=== PATIENT | male | born 1945 | race Caucasian/White ===

== ENCOUNTER 2017-02-17 03:35 | Emergency (ER) | payer MEDICARE, OTHER ==
[2017-02-17 04:08] VITALS: BP 176/94
--- NOTE | 2017-02-17 04:36 | EDM.PDOC ---
ED HPI GENERAL MEDICAL PROBLEM - General Chief Complaint: General Stated Complaint: DIZZINESS / HX OF HEART PROBLEMS Time Seen by Provider: 02/17/17 03:52 Source of Information: Reports: Patient History Limitations: Reports: No Limitations - History of Present Illness INITIAL COMMENTS - FREE TEXT/NARRATIVE: dizziness; this is a 71 y/o male presents to ER with friend, concerns of intermittent dizziness for the past day. He states was mowing the lawn, bent over then stood up, felt dizzy. He came to ER because just wasn't feeling well and wanted to be check out. -denies dizziness at this time -denies any chest pain, shortness of breath, fever, nausea or vomiting reports bladder cancer, took his second chemotherapy treatment at [facility] on 2016. reports medication is instilled into bladder. does not take any oral or IV medications for this. Onset: Today Duration: Intermittent, Resolved Prior to Arrival Location: Reports: Generalized Improves with: Reports: None Worsens with: Reports: Movement Associated Symptoms: Reports: No Other Symptoms denies pain Pain Score (Numeric/FACES): 0 - Related Data Allergies Allergy/AdvReac Type Severity Reaction Status Date / Time No Known Allergies Allergy Verified 02/12/14 07:10 Home Meds: Home Meds Aspirin [Adult Low Dose Aspirin EC] 81 mg PO DAILY 02/12/14 [History] Lisinopril [Prinivil] 20 mg PO BID 02/12/14 [History] Metoprolol Succinate 25 mg PO BID 02/12/14 [History] Nitroglycerin [Nitrostat] 0.4 mg SL ASDIRECTED PRN 02/12/14 [History] Simvastatin [Simvastatin] 80 mg PO DAILY 02/12/14 [History] Past Medical History HEENT History: Reports: Impaired Vision Cardiovascular History: Reports: [place], Stents, Other (See Below) Other Cardiovascular History: x3 stents Gastrointestinal History: Reports: Chronic Constipation Musculoskeletal History: Reports: Arthritis Neurological History: Reports: Concussion Oncologic (Cancer) History: Reports: Bladder - Infectious Disease History Infectious Disease History: Reports: Chicken Pox, Shingles - Past Surgical History Cardiovascular Surgical History: Reports: Coronary Artery Stent GI Surgical History: Reports: Colonoscopy Male Surgical History: Reports: Other (See Below) Other Male Surgeries/Procedures: has had Ca tumor removed from bladder Musculoskeletal Surgical History: Reports: None Social & Family History - Tobacco Use Smoking Status *Q: Never Smoker Second Hand Smoke Exposure: No - Caffeine Use Caffeine Use: Reports: Coffee - Alcohol Use Days Per Week of Alcohol Use: 0 - Recreational Drug Use Recreational Drug Use: No ED ROS GENERAL - Review of Systems Review Of Systems: See Below Constitutional: Reports: No Symptoms HEENT: Reports: No Symptoms Respiratory: Reports: No Symptoms Cardiovascular: Reports: No Symptoms Endocrine: Reports: No Symptoms GI/Abdominal: Reports: No Symptoms : Reports: No Symptoms Musculoskeletal: Reports: No Symptoms Skin: Reports: Bruising Neurological: Reports: No Symptoms Psychiatric: Reports: No Symptoms Hematologic/Lymphatic: Reports: No Symptoms Immunologic: Reports: No Symptoms ED EXAM, GENERAL - Physical Exam Exam: See Below Exam Limited By: No Limitations General Appearance: Alert, WD/WN, No Apparent Distress Eye Exam: Bilateral Eye: Normal Inspection Ears: Normal External Exam, Normal Canal, Hearing Grossly Normal, Normal TMs Ear Exam: Bilateral Ear: Auricle Normal, Canal Normal, TM normal Nose: Normal Inspection, Normal Mucosa, No Blood Throat/Mouth: Normal Inspection, Normal Lips, Normal Teeth, Normal Gums, Normal Oropharynx, Normal Voice, No Airway Compromise Head: Atraumatic, Normocephalic Neck: Normal Inspection Respiratory/Chest: No Respiratory Distress, Lungs Clear, Normal Breath Sounds, No Accessory Muscle Use, Chest Non-Tender Cardiovascular: Normal Peripheral Pulses, Regular Rate, Rhythm, No Edema, No Gallop, No JVD, No Murmur, No Rub GI/Abdominal: Normal Bowel Sounds, Soft, Non-Tender, No Organomegaly, No Distention, No Abnormal Bruit, No Mass (Male) Exam: Deferred Rectal (Males) Exam: Deferred Back Exam: Normal Inspection, Full Range of Motion, NT Extremities: Normal Inspection, Normal Range of Motion, Non-Tender, Normal Capillary Refill, No Pedal Edema Neurological: Alert Psychiatric: Normal Affect, Normal Mood Skin Exam: Warm, Dry, Intact, Normal Color, No Rash Lymphatic: No Adenopathy Course - Vital Signs Last Recorded V/S: Last Vital Signs Temp 36.9 C 02/17/17 03:55 Pulse 95 02/17/17 03:55 Resp 18 02/17/17 03:55 BP 176/94 H 02/17/17 03:55 Pulse Ox 95 02/17/17 03:55 - Orders/Labs/Meds Orders: Active Orders 24 hr Category Date Time Status EKG Documentation Completion [RC] ASDIRECTED Care 02/17/17 03:52 Active GLYCOSYLATED HEMOGLOBIN,HGBA1C [CHEM] Stat Lab 02/17/17 05:00 Ordered T3 FREE [CHEM] Stat Lab 02/17/17 05:12 Ordered T4 FREE [CHEM] Stat Lab 02/17/17 05:12 Ordered EKG 12 Lead [EK] Urgent Ther 02/17/17 03:52 Ordered Labs: Laboratory Tests 02/17/17 02/17/17 02/17/17 Range/Units 03:51 04:44 04:44 WBC 6.6 (4.5-11.0) K/uL RBC 4.69 (4.30-5.90) M/uL Hgb 14.6 (12.0-15.0) g/dL Hct 43.7 (40.0-54.0) % MCV 93 (80-98) fL MCH 31 (27-31) pg MCHC 33 (32-36) % Plt Count 207 (150-400) K/uL Neut % (Auto) 48 (36-66) % Lymph % (Auto) 37 (24-44) % Hardy % (Auto) 12 H (2-6) % Eos % (Auto) 3 (2-4) % Baso % (Auto) 0 (0-1) % Sodium 139 L (140-148) mmol/L Potassium 4.3 (3.6-5.2) mmol/L Chloride 102 (100-108) mmol/L Carbon Dioxide 30 (21-32) mmol/L Anion Gap 11.3 (5.0-14.0) mmol/L BUN 13 (7-18) mg/dL Creatinine 1.3 (0.8-1.3) mg/dL Est Cr Clr Drug Dosing 57.12 mL/min Estimated GFR (MDRD) 55 L (>60) Glucose 326 H (74-106) mg/dL Calcium 8.5 (8.5-10.1) mg/dL Magnesium 1.8 (1.8-2.4) mg/dL Total Bilirubin 0.3 (0.2-1.0) mg/dL AST 25 (15-37) U/L ALT 43 D (12-78) U/L Alkaline Phosphatase 82 (46-116) U/L Troponin I < 0.017 (0.000-0.056) ng/mL Total Protein 7.3 (6.4-8.2) g/dL Albumin 3.5 (3.4-5.0) g/dL Globulin 3.8 H (2.3-3.5) g/dL Albumin/Globulin Ratio 0.9 L (1.2-2.2) Amylase 29 (25-115) U/L Lipase 122 (73-393) U/L TSH, Ultra Sensitive 15.022 H (0.358-3.740) uIU/mL Urine Color Yellow Urine Appearance Clear Urine pH 6.0 (4.5-8.0) Ur Specific [place] 1.015 (1.008-1.030) Urine Protein Negative (NEGATIVE) mg/dL Urine Glucose (UA) >1000 H (NEGATIVE) mg/dL Urine Ketones Negative (NEGATIVE) mg/dL Urine Occult Blood Trace (NEGATIVE) Urine Nitrite Negative (NEGAITVE) Urine Bilirubin Negative (NEGATIVE) Urine Urobilinogen Normal (NORMAL) mg/dL Ur Leukocyte Esterase Negative (NEGATIVE) Urine RBC 5-10 H (0-5) Urine WBC 5-10 H (0-5) Ur Epithelial Cells Few Amorphous Sediment Not seen Urine Bacteria Few Urine Mucus Not seen - Re-Assessments/Exams Free Text/Narrative Re-Assessment/Exam: 02/17/17 04:35 -at this time is symptoms free -EKG sinus ryth, unchanged from EKG 2014 -order lab; troponin, cbc, cmp, amylase, lipase, tsh, ua/micro., mag++ 02/17/17 05:22 blood glucose 326, TSH 15.022 02/17/17 05:23 order Metformin 500mg po now, Synthyroid 0.075mg po now Departure - Departure Time of Disposition: 05:30 Disposition: Home, Self-Care 01 Condition: Good Clinical Impression: Diabetes type 2, uncontrolled, Hypothyroidism - Discharge Information Referrals: PCP,None [Primary Care Provider] - Forms: ED Department Discharge Care Plan Goals: Diabetes type 2; new diagnosis -Metformin 500mg take in morning and evening for blood gluocose -diet changes; avoid sugars, limit or avoid candy, chocolate, creamers -referral to Diabetes Nurse Educator -referral to Primary Care Provider for follow up on diabetes Hypothyroidism -start thyroid replacement -script Synthroid tablet 0.075mg drink plenty of fluids, avoid sugar take medication as prescribed return to clinic or er for any concerns or not improved. - Problem List & Annotations (1) Diabetes type 2, uncontrolled SNOMED Code(s): 33517565, 330499253 Code(s): E11.65 - TYPE 2 DIABETES MELLITUS WITH HYPERGLYCEMIA Status: Acute Priority: High Current Visit: Yes Qualifiers: Diabetes mellitus complication status: with hyperglycemia Diabetes mellitus ferry terminal supervisor insulin use: without mcc use Qualified Code(s): E11.65 - Type 2 diabetes mellitus with hyperglycemia (2) Hypothyroidism SNOMED Code(s): 91210332 Code(s): E03.9 - HYPOTHYROIDISM, UNSPECIFIED Status: Acute Priority: High Current Visit: Yes Qualifiers: Hypothyroidism type: unspecified Qualified Code(s): E03.9 - Hypothyroidism , unspecified - Problem List Review Problem List Initiated/Reviewed/Updated: Yes - My Orders Last 24 Hours: My Active Orders 02/17/17 03:52 EKG Documentation Completion [RC] ASDIRECTED EKG 12 Lead [EK] Urgent 02/17/17 05:00 GLYCOSYLATED HEMOGLOBIN,HGBA1C [CHEM] Stat 02/17/17 05:12 T3 FREE [CHEM] Stat T4 FREE [CHEM] Stat - Assessment/Plan Last 24 Hours: My Active Orders 02/17/17 03:52 EKG Documentation Completion [RC] ASDIRECTED EKG 12 Lead [EK] Urgent 02/17/17 05:00 GLYCOSYLATED HEMOGLOBIN,HGBA1C [CHEM] Stat 02/17/17 05:12 T3 FREE [CHEM] Stat T4 FREE [CHEM] Stat Plan: Diabetes type 2; new diagnosis -Metformin 500mg take in morning and evening for blood gluocose -diet changes; avoid sugars, limit or avoid candy, chocolate, creamers -referral to Diabetes Nurse Educator -referral to Primary Care Provider for follow up on diabetes Hypothyroidism -start thyroid replacement -script Synthroid tablet 0.075mg drink plenty of fluids, avoid sugar take medication as prescribed return to clinic or er for any concerns or not improved.
[2017-02-17] MEDS ORDERED: metFORMIN 500 MG Tab PO ONE (05:22)
[2017-02-17] MEDS ORDERED: Levothyroxine 75 MCG Tab PO ONE (05:23)
[2017-02-17] MEDS ORDERED: Levothyroxine 50 MCG Tab ONE (05:35)
== END 2017-02-17 06:07 | disposition home or self-care (01) ==
LOC: JP.ED 03:35
DX: E11.65 Type 2 diabetes mellitus with hyperglycemia (principal); E03.9 Hypothyroidism, unspecified; I25.2 Old myocardial infarction; Z79.82 Long term (current) use of aspirin; Z79.899 Other long term (current) drug therapy; Z85.51 Personal history of malignant neoplasm of bladder; Z95.5 Presence of coronary angioplasty implant and graft; Z98.890 Other specified postprocedural states
CPT/HCPCS: 36415; 80053; 81001; 82150; 83036; 83690; 83735; 84439; 84443; 84481; 84484; 85025; 93005; 99284; A9270; 93010

== ENCOUNTER 2017-07-03 02:45 | Emergency (ER) | payer MEDICARE, OTHER ==
[2017-07-03 03:02] VITALS: BP 160/73
--- NOTE | 2017-07-03 03:31 | EDM.PDOC ---
ED HPI GENERAL MEDICAL PROBLEM - General Chief Complaint: Genitourinary Problem Stated Complaint: BLADDER ISSUES Time Seen by Provider: 07/03/17 03:15 Source of Information: Reports: Patient, Family History Limitations: Reports: No Limitations - History of Present Illness INITIAL COMMENTS - FREE TEXT/NARRATIVE: 71-year-old male who recently had a procedure on his bladder for bladder cancer had an indwelling Blankenship catheter until removed at home yesterday. He was passing urine normally but in the evening started to have some urinary retention. He became fairly uncomfortable tonight so came in, however shortly after arriving he emptied his bladder without difficulty. He did pass some small clots. A bladder scan prior to his spontaneous urination was 150, he urinated just over 100 mL. He still has a little bit of lower abdominal discomfort but does not feel urinary urgency or distention. Location: Reports: Abdomen Severity: Mild abd Pain Score (Numeric/FACES): 4 - Related Data Allergies Allergy/AdvReac Type Severity Reaction Status Date / Time No Known Allergies Allergy Verified 07/03/17 03:04 Home Meds: Home Meds Aspirin [Adult Low Dose Aspirin EC] 81 mg PO DAILY 02/12/14 [History] Lisinopril [Prinivil] 20 mg PO BID 02/12/14 [History] Metoprolol Succinate 25 mg PO BID 02/12/14 [History] Nitroglycerin [Nitrostat] 0.4 mg SL ASDIRECTED PRN 02/12/14 [History] Simvastatin [Simvastatin] 80 mg PO BEDTIME 02/12/14 [History] Doxycycline [Vibramycin] 100 mg PO BID 07/03/17 [History] Oxybutynin [Oxybutynin ER] 10 mg PO DAILY 07/03/17 [History] oxyCODONE [oxyCODONE] 5 - 10 mg PO Q4HR PRN 07/03/17 [History] Past Medical History HEENT History: Reports: Impaired Vision Cardiovascular History: Reports: [place], Stents, Other (See Below) Other Cardiovascular History: x3 stents Gastrointestinal History: Reports: Chronic Constipation Musculoskeletal History: Reports: Arthritis Neurological History: Reports: Concussion Oncologic (Cancer) History: Reports: Bladder - Infectious Disease History Infectious Disease History: Reports: Chicken Pox, Shingles - Past Surgical History Cardiovascular Surgical History: Reports: Coronary Artery Stent GI Surgical History: Reports: Colonoscopy Male Surgical History: Reports: Other (See Below) Other Male Surgeries/Procedures: has had Ca tumor removed from bladder x3 Musculoskeletal Surgical History: Reports: None Social & Family History - Tobacco Use Smoking Status *Q: Never Smoker Second Hand Smoke Exposure: No - Caffeine Use Caffeine Use: Reports: Coffee - Alcohol Use Days Per Week of Alcohol Use: 0 - Recreational Drug Use Recreational Drug Use: No ED ROS GENERAL - Review of Systems Review Of Systems: See Below Constitutional: Denies: Fever, Chills, Malaise Respiratory: Denies: Shortness of Breath Cardiovascular: Denies: Chest Pain Musculoskeletal: Reports: Back Pain (Chronic, unchanged) ED EXAM, RENAL/ - Physical Exam Exam: See Below Exam Limited By: No Limitations General Appearance: Alert, No Apparent Distress Respiratory/Chest: No Respiratory Distress GI/Abdominal: Other (Some discomfort with palpation across the lower abdomen but no distention or firmness) Course - Vital Signs Last Recorded V/S: Last Vital Signs Temp 97.9 F 07/03/17 03:01 Pulse 71 07/03/17 03:01 Resp 16 07/03/17 03:01 BP 160/73 H 07/03/17 03:01 Pulse Ox 94 L 07/03/17 03:01 - Re-Assessments/Exams Free Text/Narrative Re-Assessment/Exam: 07/03/17 03:28 Discussed replacing the Blankenship or irrigating the bladder, but the patient was feeling much better and wanted to avoid placing the Blankenship back in. He is already on the proper medications, so I encouraged him to continue drinking lots of water and return if problems. Departure - Departure Time of Disposition: 03:35 Disposition: Home, Self-Care 01 Condition: Good Clinical Impression: Urinary retention - Discharge Information Instructions: Acute Urinary Retention, Male, [id number] Referrals: Chapo Samuels PA-C [Primary Care Provider] - Forms: ED Department Discharge Care Plan Goals: Continue drinking water, continue your current medications and return if you redevelop problems emptying your bladder.
== END 2017-07-03 03:35 | disposition home or self-care (01) ==
LOC: JP.ED 02:45
DX: R33.9 Retention of urine, unspecified (principal); Z79.899 Other long term (current) drug therapy; Z79.82 Long term (current) use of aspirin; Z85.51 Personal history of malignant neoplasm of bladder
CPT/HCPCS: 51798; 99283